=== PATIENT | male | born 1960 | race Caucasian/White ===

== ENCOUNTER 2017-09-05 06:27 | Emergency (ER) | payer BC ==
[2017-09-05 07:47] LABS: CARBON DIOXIDE 24.5 mmol/L (21-32); CHLORIDE SERUM 104 mmol/L (98-107); CREATININE SERUM 0.9 mg/dL (0.7-1.3); GFR1 > 60 mL/min; GLUCOSE SERUM 115 mg/dL (74-106); SODIUM SERUM 140 mmol/L (136-145)
[2017-09-05 07:51] LABS: ALBUMIN 3.9 g/dL (3.4-5.0); ALKALINE PHOSPHATASE 85 U/L (46-116); ALT/SGPT 35 U/L (16-63); AST/SGOT 26 U/L (15-37); BILIRUBIN TOTAL 0.39 mg/dL (0.20-1.00); LIPASE 138 IU/L (73-393); TOTAL PROTEIN, SERUM 7.7 g/dL (6.4-8.2)
[2017-09-05 07:54] LABS: BASOPHIL % 0.5 % (0-2); PLATELET COUNT 164 x10^3mcL (130-400); RED CELL DISTRIBUTION WIDTH 13.7 % (11.5-14.5)
[2017-09-05 08:37] VITALS: BP 118/64
== END 2017-09-05 08:37 | disposition home or self-care (01) ==
LOC: ED 06:27
PROVIDERS: Emergency Medicine
DX: R10.9 Unspecified abdominal pain (principal); I10 Essential (primary) hypertension; E78.00 Pure hypercholesterolemia, unspecified
CPT/HCPCS: 36415; J1885

== ENCOUNTER 2018-09-18 05:28 | Emergency (ER) | payer BC ==
[~2018-09-18] VITALS: Ht 167.6 cm; Wt 80.8 kg
[2018-09-18 07:26] VITALS: BP 152/86
== END 2018-09-18 07:31 | disposition home or self-care (01) ==
LOC: ED 05:28
DX: M66.0 Rupture of popliteal cyst (principal)
CPT/HCPCS: Q0092